=== PATIENT | female | born 1960 | race American Indian/Alaskan Native ===

== ENCOUNTER 2016-06-26 11:44 | Outpatient (CLI) | payer OTHER ==
--- NOTE | 2016-06-26 12:52 | XRay Report ---
CERVICAL SPINE SERIES THREE VIEWS: 06/26/16 11:44:00 CLINICAL: Postlaminectomy syndrome. Pain. COMPARISON: 06/14/12 FINDINGS: AP and lateral views without and with flexion and extension were performed. Status post anterior cervical fusion C2-4. Normal appearance of the hardware. Normal alignment and no subluxation with flexion and extension. C4-5 degenerative disc disease with a very large anterior osteophyte. The osteophyte has enlarged and the C5 vertebral body has lost some height since the prior exam. A small C5-6 anterior osteophyte is unchanged. No fracture. Normal soft tissues. IMPRESSION: Status post anterior cervical fusion C2-4. No evidence of instability. Slightly worse degenerative disc disease at C4-5.
== END 2016-06-26 11:45 | disposition home or self-care (01) ==
LOC: SPVIMAG 11:44
PROVIDERS: ATTEND Neurological Surgery
DX: M96.1 Postlaminectomy syndrome, not elsewhere classified (principal); M50.30 Other cervical disc degeneration, unspecified cervical region; M25.78 Osteophyte, vertebrae; G89.18 Other acute postprocedural pain; Z98.1 Arthrodesis status
CPT/HCPCS: 72040

== ENCOUNTER 2017-03-09 10:08 | Outpatient (CLI) | payer OTHER ==
--- NOTE | 2017-03-09 15:11 | XRay Report ---
XRAY CHEST TWO VIEWS: 03/09/17 10:08:00 CLINICAL: Cough. COMPARISON: None FINDINGS: Normal heart and pulmonary vasculature. The lungs are a and clear.Degenerative change in spine. IMPRESSION: No acute cardiopulmonary process.
== END 2017-03-09 10:09 | disposition home or self-care (01) ==
LOC: SPVIMAG 10:08
PROVIDERS: ATTEND Internal Medicine
DX: R05 Cough (principal); M47.899 Other spondylosis, site unspecified
CPT/HCPCS: 71020